=== PATIENT | female | born 1990 | race Caucasian/White ===

== ENCOUNTER 2019-01-12 09:32 | Emergency (ER) | payer MEDICAID ==
[~2019-01-12] VITALS: Wt 55.0 kg
[2019-01-12 09:44] VITALS: BP 125/85; PULSE 76; RESP 18
--- NOTE | 2019-01-14 01:18 | ERD ---
ER Documentation Chief Complaint Chief Complaint sent by ob for lab work for ob check . no abd pain no vag bleed. 8 wks preg HPI 28-year-old female who is reportedly 8 weeks , G1 presenting with request for blood work pertaining to her . She denies any vaginal bleeding, discharge, pelvic pain, fevers, chills, abdominal pain, or all other symptoms at this time. Patient does have lab work ordered form with her in multiple locations where she may have the lab work completed. Patient is requesting test such as HIV antibody, and other specific genetic tests related to the fetus. Patient is completely asymptomatic. ROS All systems reviewed and are negative except as per history of present illness. PMhx/Soc Medical and Surgical Hx: pt denies Medical Hx, pt denies Surgical Hx Hx Alcohol Use: No Hx Substance Use: No Hx Tobacco Use: No Smoking Status: Never smoker FmHx Family History: No diabetes Physical Exam Vitals Vital Signs Date Temp Pulse Resp B/P (MAP) Pulse Ox O2 O2 Flow FiO2 Time Delivery Rate 01/12/19 98.0 76 18 125/85 98 09:44 (98) Physical Exam Const: No acute distress Head: Atraumatic Eyes: Normal Conjunctiva ENT: Normal External Ears, Nose and Mouth. Neck: Full range of motion. No meningismus. Resp: No respiratory distress. Abd: Gravid abdomen. Skin: No petechiae or rashes Ext: No cyanosis, or edema Neur: Awake and alert Psych: Normal Mood and Affect Procedures/MDM 28-year-old female presenting to the emergency department requesting lab work pertaining to her . I did explain thoroughly to the patient using a lamination technician from Romanian to Malaysian that these tests would need to be completed in an outpatient laboratory as they are not available or indicated in the emergency department as the patient is completely asymptomatic. Patient understands information provided. She was advised she may return to the department immediately for any new or worsening or concerning symptoms. Patient understands and agrees with plan for discharge. Departure Diagnosis: Primary Impression: Encounter for laboratory examination Condition: Fair Patient Instructions: Adapting to : First Trimester [facility]: [facility] Usted se brown hecho un examen mdico de control que le indica que no est en mabel condicin que requiera tratamiento urgente en el Departamento de Emergencia. Un estudio ms profundo y el tratamiento de callahan condicin pueden esperar sin ningn riesgo hasta que usted sea atendida/o en el consultorio de callahan mdico o mabel clnica. Es responsabilidad suya arreglar mabel sahara para el seguimiento del alexandre. MANEJO DE CONDICIONES NO URGENTES EN EL FUTURO 1) Si usted tiene un mdico de atencin primaria: Usted debera llamar a callahan mdico de atencin primaria antes de venir al departamento de emergencia. Despus de las horas de consultorio, callahan doctor o callahan asociado/a est disponible por telfono. El mdico o enfermero de los en el servicio telefnico puede asesorarle por rito medio para atender el problema, o alexandre contrario se puede programar mabel sahara. 2) Si usted no tiene un mdico de atencin primaria: Llame al mdico o clnica de referencia que aparece abajo amado las horas de consultorio para hacer mabel sahara para que le vean. CLINICAS: [facility] [phone] [facility] [phone] [facility]. [facility] [phone] [address] [facility]. [place] [address] [phone] [facility] [place] [address] [phone] [facility]. [phone] [employer] [place] [address] [facility] [address] [place] [address] OFFICE FAX JACKELYN RABAGO [address] [place] [id number] [facility] [address] [place] [address] DR FLORES, HESHMAT [address] [facility], [address], [place] [address] DR HART, [facility] [address] [facility] [place] [address] [facility] [address] [place] [address] [address] [facility] [id number] - DR RAY, LM [address], [place] [address] DR TAVARES, ARPITA [address] [facility]. [address], [place] [address] DR SIMS, FARID [address] [place] [address] Additional Instructions: Llame al doctor MAANA y emmanuel mabel SAHARA PARA DENTRO DE 1-2 SUAREZ.Dgale a la secretaria que nosotros le instruimos hacer esta sahara.Avise o llame si callahan condic in se empeora antes de la sahara. Regresa aqui si peor o no mejor. JUVE BE PA-C Jan 14, 2019 01:18
== END 2019-01-12 10:31 | disposition home or self-care (01) ==
LOC: FTE 09:32
DX: Z00.00 Encounter for general adult medical examination without abnormal findings (principal)
CPT/HCPCS: 99282